=== PATIENT | female | born 1975 | race Caucasian/White ===

== ENCOUNTER → 2019-08-20 | Outpatient (CLI) | payer SELFPAY ==
[~2019-08-20] VITALS: Ht 152 cm; Wt 87.0 kg
[~2019-08-20] MED LIST: CATHETER FLUSH 10 ML SYR IV PRN
--- NOTE | 2019-08-21 16:38 | STRESS TEST ---
DATE OF SERVICE: 08/20/2019 RESTING AND POSTEXERCISE REGADENOSON TECHNETIUM-99M TETROFOSMIN SPECT CT IMAGING CLINICAL DIAGNOSIS: Chest pain. ORDERING PHYSICIAN: Ceci uGerrier APRN PRIMARY PHYSICIAN: [facility]. Baseline images were carried out after injection of 10.44 mCi of technetium-99m Tetrofosmin. This was followed by exercise on a treadmill. Zach protocol was employed. Heart rate and blood pressure responses to exercise were normal. No significant arrhythmia was seen. There is considerable baseline artifact with exercise, but there does not appear to be significant ST segment depression with exercise. When the patient had attained more than 85% of maximum predicted heart rate and had indicated that she would not be able to go for more than another minute, 29.9 mCi of technetium-99m Tetrofosmin were injected and the exercise was continued for another minute. Review of images at rest and following stress does not indicate any significant perfusion defects consistent with significant myocardial ischemia or infarction. Gated images show normal global left ventricular systolic function with normal regional wall motion. Left ventricular ejection fraction is calculated to be 72%. Left ventricular end diastolic volume is 38 mL. TID is absent (0.9). CONCLUSIONS: 1. No evidence of any significant myocardial ischemia or infarction on this study. 2. Normal regional wall motion. 3. Normal global left ventricular systolic function with a calculated ejection fraction of 72%. Job ID: [id number] DocumentID: [id number] Dictated Date: 08/21/2019 13:54:29 Brush Worker Date: 08/21/2019 16:36:57 Dictated By: AVA DIEZ MD, MA, FACP, FACC,
== END ==
LOC: CARD 11:05
PROVIDERS: ATTEND Nurse Practitioner Family
DX: I10 Essential (primary) hypertension (principal); F41.9 Anxiety disorder, unspecified; R07.9 Chest pain, unspecified; R00.2 Palpitations
CPT/HCPCS: 78452; 93017; 93306